=== PATIENT | female | born 1970 | race Caucasian/White ===

== ENCOUNTER 2016-11-28 09:19 | Emergency (ER) | payer BC ==
[2016-11-28 09:30] VITALS: BP 160/94
[2016-11-28] MEDS ORDERED: Acetaminophen TAB* 325 MG PO ONE (09:33)
--- NOTE | 2016-11-28 09:33 | UC ---
Lower Extremity/Ankle HPI - HPI Summary HPI Summary: pain in right heel began after a 3 mile hike yesterday----simial in the past worse first think in the morning and after holding foot still. has not has any treatment in the past ---except rest and ice - History of Current Complaint Chief Complaint: UCLowerExtremity Stated Complaint: HEEL PAIN Time Seen by Provider: 11/28/16 09:24 Hx Obtained From: Patient Hx Last Menstrual Period: 3 wks ago ?: No Onset/Duration: Gradual Onset, Lasting Weeks, Worse Since - yesterday Severity Initially: Moderate Severity Currently: Moderate Pain Intensity: 5 Pain Scale Used: 0-10 Numeric Aggravating Factor(s): Standing, Ambulation Alleviating Factor(s): Nothing Able to Bear Weight: Yes - Allergies/Home Medications Allergies/Adverse Reactions: Allergies Allergy/AdvReac Type Severity Reaction Status Date / Time No Known Allergies Allergy Verified 11/28/16 09:33 Home Medications: Home Medications Famotidine TAB* [Pepcid 20 MG TAB*] 1 tab PO DAILY 11/28/16 [History Confirmed 11/28/16] PMH/Surg Hx/FS Hx/Imm Hx Previously Healthy: No Endocrine History Of: Reports: Diabetes - "insulin resistance" "metabolic syndrome" Denies: Thyroid Disease Cardiovascular History Of: Reports: Hypertension - TREATED WITH MEDICATION Denies: Cardiac Disorders, Pacemaker/ICD Respiratory History Of: Reports: Asthma, Bronchitis, Pneumonia Denies: COPD GI/ History Of: Denies: Ulcer Psychological History Of: Reports: Anxiety, Depression - Surgical History Surgical History: Yes Surgery Procedure, Year, and Place: Sinus Surgery 15 years ago; Lump Removed from Back - Family History Known Family History: Positive: None Family History: no reported cardio vascular issues in family lineage - Social History Occupation: Employed Full-time Lives: With Family Alcohol Use: Occasionally Substance Use Type: Marijuana Smoking Status (MU): Former Smoker Type: Cigarettes Have You Smoked in the Last Year: Yes When Did the Patient Quit Smoking/Using Tobacco: 2 months ago (10/02) Review of Systems Constitutional: Negative Skin: Negative Eyes: Negative ENT: Negative Respiratory: Negative Cardiovascular: Negative Gastrointestinal: Negative Genitourinary: Negative Motor: Negative Neurovascular: Negative Musculoskeletal: Arthralgia - right heel Neurological: Negative Psychological: Negative All Other Systems Reviewed And Are Negative: Yes Physical Exam Triage Information Reviewed: Yes Appearance: Well-Appearing, No Pain Distress, Obese Vital Signs Reviewed: Yes Eye Exam: Normal Eyes: Positive: Conjunctiva Clear ENT Exam: Normal ENT: Positive: Normal ENT inspection, Hearing grossly normal. Negative: Nasal congestion, Nasal drainage, Trismus, Muffled/hoarse voice Dental Exam: Normal Neck exam: Normal Neck: Positive: Supple, Nontender Respiratory Exam: Normal Respiratory: Positive: Chest non-tender, No respiratory distress, No accessory muscle use Cardiovascular Exam: Normal Cardiovascular: Positive: RRR, Pulses Normal, Brisk Capillary Refill Musculoskeletal Exam: Normal Musculoskeletal: Positive: Strength Intact, ROM Intact, No Edema Neurological Exam: Normal Neurological: Positive: Alert, Muscle Tone Normal Psychological Exam: Normal Skin Exam: Normal Diagnostics - Radiology No standard instances Xray Interpretation: Positive (See Comments) - heel spur Radiology Interpretation Completed By: Radiologist Lower Extremity Course/Dx - Course Course Of Treatment: plantar fac. exercises, hypertension information follow with pcp and podiatry - Differential Dx/Diagnosis Differential Diagnosis/HQI/PQRI: Contusion, Fracture (Closed), Gout, Sprain, Strain, Tendonitis Provider Diagnoses: Hypertension, plantar tendonitis (R) Discharge - Discharge Plan Condition: Stable Disposition: HOME Patient Education Materials: Acetaminophen (By mouth), Plantar Fasciitis Exercises (GEN), Plantar Fasciitis (ED), Hypertension (ED) Referrals: Randall Laboy DPM [Doctor of Podiatric Medicine] - 3 Days Stephon Crawley DO [Primary Care Provider] - 1 Week Kael Santiago DPM [Doctor of Podiatric Medicine] - 3 Days
--- NOTE | 2016-11-28 10:12 | RAD ---
INDICATION: Right heel pain after hiking. TECHNIQUE: 3 views of the right foot were obtained. FINDINGS: The bones are in normal alignment. No fracture is seen. There are moderate-sized spurs arising from the posterior and inferior aspect of the calcaneus. IMPRESSION: CALCANEAL SPURS.
== END 2016-11-28 10:40 | disposition home or self-care (01) ==
LOC: UCEAST 09:19
DX: M72.2 Plantar fascial fibromatosis (principal); E11.9 Type 2 diabetes mellitus without complications; I10 Essential (primary) hypertension; J45.909 Unspecified asthma, uncomplicated; F41.9 Anxiety disorder, unspecified; F32.9 Major depressive disorder, single episode, unspecified; F12.90 Cannabis use, unspecified, uncomplicated; F17.210 Nicotine dependence, cigarettes, uncomplicated; Z87.01 Personal history of pneumonia (recurrent)
CPT/HCPCS: 99212; A9270-GY; G0463

== ENCOUNTER 2017-05-09 17:08 | Emergency (ER) | payer BC ==
--- NOTE | 2017-05-09 18:21 | UC ---
Respiratory Complaint HPI - HPI Summary HPI Summary: 46 y/o female PMHX PCOS, HTN, Asthma presents to the urgent care c/o persistent cough since the end of 02/2017. Pt reports , symptoms started with bronchitis and then pneumonia. she has been Tx by her PCP with 1 round of Z-luis manuel, and 2 rounds of Doxycycline PO and Prednisone PO which she finished 4 days ago. However her coughing continues to be persistent, producing a yellowish phlegm. Symptoms are not resolving and now she has RT side mid back pain around ribs, just around the ribs, SOB at home. She has been doing the nebulizer Tx and taking Tessalon PO and Robitussin AC to alleviate cough.Pt is tired of being sick and she is thinking in changing her PCP. She also states urinary frequency and pressure for the past 3 days. Pt denies fever, chest pain lower back pain, and vaginal discharge. LMP: in 03/2016, she declines test since she is not sexually active. - History of Current Complaint Chief Complaint: UCBackPain Stated Complaint: BACK PAIN Time Seen by Provider: 05/09/17 17:59 Hx Obtained From: Patient Hx Last Menstrual Period: poly cystic ovary ?: No Onset/Duration: Gradual Onset, Lasting Weeks - 6-7 weeks, Still Present Timing: Constant Severity Initially: Mild Severity Currently: Severe Pain Intensity: 0 Pain Scale Used: 0-10 Numeric Character: Cough: Productive, Sputum Description: - yellowish Aggravating Factors: Deep Breaths Alleviating Factors: Bronchodilator, OTC Meds Associated Signs And Symptoms: Positive: Dyspnea, Fever - subjective at home, Wheezing Related History: Similar Episode/Dx as: - bronchitis and pneumonia - Risk Factors Pulmonary Embolism Risk Factors: Negative Cardiac Risk Factors: Negative Pseudomonas Risk Factors: Negative Tuberculosis Risk Factors: Negative - Allergies/Home Medications Allergies/Adverse Reactions: Allergies Allergy/AdvReac Type Severity Reaction Status Date / Time No Known Allergies Allergy Verified 11/28/16 09:33 Home Medications: Home Medications Albuterol HFA INHALER* [Ventolin HFA Inhaler*] 1 puff INH Q4H PRN 05/09/17 [ History Confirmed 05/09/17] Albuterol HFA INHALER* [Ventolin HFA Inhaler*] 1 puff INH Q4H PRN 05/09/17 [ History Confirmed 05/09/17] Albuterol/Ipratropium NEB.DRAGAN* [Duoneb (Albuterol 2.5 MG/Ipratropium 0.5 MG)] 1 neb INH Q4H 05/09/17 [History Confirmed 05/09/17] Benzonatate CAP* [Tessalon 100 MG CAP*] 100 mg PO TID 05/09/17 [History Confirmed 05/09/17] Lisinopril [Prinivil TAB 20 mg] 20 mg PO DAILY 05/09/17 [History Confirmed 05/09] Montelukast Sodium TAB* [Singulair 10 MG TAB*] 10 mg PO DAILY 05/09/17 [History Confirmed 05/09/17] PMH/Surg Hx/FS Hx/Imm Hx Previously Healthy: No - With pneumonia and bronchits for the past 6 weeks Other Endocrine History: PCOS Cardiovascular History: Hypertension Respiratory History: Asthma - Surgical History Surgical History: Yes Surgery Procedure, Year, and Place: Sinus Surgery 15 years ago; Lump Removed from Back - Family History Known Family History: Positive: Hypertension Family History: Renal cell carcinoma - Social History Occupation: Employed Full-time Lives: With Family Alcohol Use: Occasionally Substance Use Type: Marijuana Substance Use Comment - Amount & Last Used: few times a week Smoking Status (MU): Former Smoker Type: Cigarettes Length of Time of Smoking/Using Tobacco: 09/2016 Have You Smoked in the Last Year: Yes When Did the Patient Quit Smoking/Using Tobacco: 2 months ago (10/02) Review of Systems Constitutional: Fever - subjective at home Skin: Negative Eyes: Negative ENT: Negative Respiratory: Shortness Of Breath, Cough - productive with yellowish sputum Cardiovascular: Negative Gastrointestinal: Negative Genitourinary: Frequency, Urgency Motor: Negative Neurovascular: Negative Musculoskeletal: Negative Neurological: Negative Psychological: Negative Is Patient Immunocompromised?: No All Other Systems Reviewed And Are Negative: Yes Physical Exam Triage Information Reviewed: Yes Vital Signs: Initial Vital Signs Temp 98.4 F 05/09/17 17:21 Pulse 104 05/09/17 17:21 Resp 18 05/09/17 17:21 BP 131/76 05/09/17 17:21 Pulse Ox 98 05/09/17 17:21 - Additional Comments Vital Signs Reviewed: Yes General: well nourished, well developed obese female, sitting comfortably on the examining table Eyes: Positive: Conjunctiva Clear - PERRLA, EOMI, fundi grossly normal ENT: Positive: Normal ENT inspection, Hearing grossly normal, Pharynx normal, Nasal congestion - edematous and erythematous nasal mucosa, Nasal drainage - yellowish drainage, TMs normal. Negative: Tonsillar swelling, Tonsillar exudate Neck: Positive: Supple, Nontender, No Lymphadenopathy Respiratory: no orthopnea or dyspnea. Able to speak in full sentences, no retractions or accessory muscle use, stridor, or head bobbing. mild decrease breath soun on the RT lowerposterior lung, with sccattered rhonchi in both lungs. Cardiovascular: Positive: RRR, No Murmur, Pulses Normal, Brisk Capillary Refill Abdomen Description: Positive: Nontender, No Organomegaly, Soft. Negative: CVA Tenderness (R), CVA Tenderness (L) Bowel Sounds: Positive: Present Musculoskeletal Exam: Normal Musculoskeletal: Positive: Strength Intact, ROM Intact, No Edema Neurological Exam: Normal Psychological Exam: Normal Skin Exam: Normal UC Diagnostic Evaluation - Laboratory O2 Sat by Pulse Oximetry: 98 Respiratory Course/Dx - Course Course Of Treatment: 46 y/o female PMHX PCOS, HTN, Asthma presents to the urgent care c/o persistent cough since the end of 02/2017. Pt reports , symptoms started with bronchitis and then pneumonia. she has been Tx by her PCP with 1 round of Z-luis manuel, and 2 rounds of Doxycycline PO and Prednisone PO which she finished 4 days ago. However her coughing continues to be persistent, producing a yellowish phlegm. Symptoms are not resolving and now she has RT side mid back pain around ribs, just around the ribs, SOB at home. She has been doing the nebulizer Tx and taking Tessalon PO and Robitussin AC to alleviate cough.Pt is tire of being sick and she is thinking in changing her PCP. She also states urinary frequency and pressure for the past 3 days. Pt denies fever, chest pain lower back pain, and vaginal discharge. LMP: in 03/2016 , she declines test since she is not sexually active. HX obtained. Pt with decrease breath sound on the RT posterior lower lung on examination. UA ordered, result: trace blood. Chest X-ray ordered, Impression: Suggestion of patchy alveolar infiltrates in RT lung > LF lung, mild bronchopneumonia. Pt has been already on Z-luis manuel and doxycycline PO. Dr Dsouza consulted on Pt 's symptoms. She suggested to Rx Bioxen PO. Pharmacy close at this moment. Pt given 1 dose of azitromycin tonight and then advised her to continue with Bioxen tomorrow. also advised to continue doing the nebulazer treatments and continue with the Robitussin to alleviate cough, Increase fluid intake, rest and eat well. Pt strogly advised to F/u with a PCP in 2-3 days for further management. I discussed all the findings and test results with the patient. Patient was instructed to return to the urgent care immediately if any of the symptoms return or worsens. Plan of care was discussed with the patient and understands and agrees. All questions were answered at patient satisfaction. There were no further complaints or concerns. - Differential Dx/Diagnosis Differential Diagnosis/HQI/PQRI: Asthma, Bronchitis, Sinusitis, Other - pneumonia, UTI, Provider Diagnoses: 1- Brochopneumonia - Physician Notification/Consults Discussed Patient Care With: Fabiola Dsouza - DR paulson agreed w/ plan of care Discharge - Discharge Plan Condition: Stable Disposition: HOME Prescriptions: Clarithromycin TAB* [Biaxin 500 MG TAB*] 500 mg PO BID #13 tab guaiFENesin/CODIEN 100MG-10MG* [Robitussin AC 100Mg-10Mg*] 5 ml PO Q4H PRN #120 ml MDD 60ml PRN Reason: Cough Patient Education Materials: Community Acquired Pneumonia (ED) Forms: *Work Release Referrals: [facility] [place] [facility]IAN REFERRAL [Outside] - 3 Days Dangelo Lawler MD [Primary Care Provider] - Additional Instructions: 1-Please take full course of antibiotic to avoid resistance. 2-Continue taking the tessalon PO tabs and the Robitussin AC w/ codeine as directed , use the albuterol inhaler to alleviate cough. Increase fluid intake , rest and eat well. 3- If symptoms do not improve or worsen or your develop SOB with fever and severe cough please go immediately to the ER further evaluation and treatment. 4-See your PCP in 2-3 days to check your symptoms are improving
--- NOTE | 2017-05-09 18:38 | RAD ---
INDICATION: Persistent cough for one month. Shortness of breath. COMPARISON: March 17, 2017 TECHNIQUE: Dual energy PA and routine lateral views of the chest were obtained. REPORT: Large body habitus limits image quality. Suggestion of subtle patchy alveolar infiltrates greater on the RIGHT than the LEFT. Negative for pleural effusion or pneumothorax. The heart, pulmonary vasculature, and mediastinal contours are unremarkable. Mild thoracic degenerative spondylosis. IMPRESSION: Suggestion of mild bronchopneumonia.
[2017-05-09] MEDS ORDERED: Clarithromycin TAB* 500 MG PO ONE (18:57)
[2017-05-09] MEDS ORDERED: Azithromycin TAB* 250 MG PO ONE (19:06)
[2017-05-09 19:20] VITALS: BP 124/80
== END 2017-05-09 19:21 | disposition home or self-care (01) ==
LOC: UCEAST 17:08
DX: J18.0 Bronchopneumonia, unspecified organism (principal); E28.2 Polycystic ovarian syndrome; I10 Essential (primary) hypertension; J45.909 Unspecified asthma, uncomplicated
CPT/HCPCS: 71020; 81003; 99212; A9270-GY; G0463

== ENCOUNTER 2018-01-09 17:02 | Emergency (ER) | payer BC ==
[2018-01-09 17:16] VITALS: BP 142/95
--- NOTE | 2018-01-09 17:23 | UC ---
Respiratory Complaint HPI - HPI Summary HPI Summary: 47 yo female presents with dry cough and chest congestion for the past 2 weeks. She tells me that she has had pneumonia multiple times in the past and this feels the same. She has a history of asthma and has a nebulizer at home and has been using this with her albuterol solution more frequently lately. Does feel SOB at times especially with walking. Denies fever, chills, chest pain, abdominal pain, n/v. - History of Current Complaint Chief Complaint: UCRespiratory Stated Complaint: CHEST CONGESTION, BACK PAIN Time Seen by Provider: 01/09/18 17:23 Hx Obtained From: Patient Hx Last Menstrual Period: poly cystic ovary Severity Currently: None Pain Intensity: 0 Character: Cough: Nonproductive - Allergies/Home Medications Allergies/Adverse Reactions: Allergies Allergy/AdvReac Type Severity Reaction Status Date / Time No Known Allergies Allergy Verified 01/09/18 17:17 Home Medications: Home Medications Cholecalciferol (Vitamin D3) [Vitamin D3] 10,000 unit PO BEDTIME 01/09/18 [ History Confirmed 01/09/18] PMH/Surg Hx/FS Hx/Imm Hx Cardiovascular History: Hypertension Respiratory History: Asthma GI/ History: Gastroesophageal Reflux - Surgical History Surgical History: Yes Surgery Procedure, Year, and Place: Sinus Surgery 15 years ago; Lump Removed from Back - Family History Known Family History: Positive: None, Hypertension Family History: Renal cell carcinoma - Social History Occupation: Employed Full-time Lives: With Family Alcohol Use: Rare Substance Use Type: Marijuana Substance Use Comment - Amount & Last Used: few times a month Smoking Status (MU): Former Smoker Type: Cigarettes Length of Time of Smoking/Using Tobacco: 09/2016 Have You Smoked in the Last Year: Yes When Did the Patient Quit Smoking/Using Tobacco: 2 months ago (10/02) Review of Systems Constitutional: Negative Skin: Negative Eyes: Negative ENT: Negative Respiratory: Shortness Of Breath, Cough Cardiovascular: Negative Gastrointestinal: Negative Neurovascular: Negative Neurological: Negative Psychological: Negative All Other Systems Reviewed And Are Negative: Yes Physical Exam - Summary Physical Exam Summary: GENERAL: NAD. WDWN. No pain distress. SKIN: No rashes, sores, lesions, or open wounds. HEENT: Head: AT/NC Eyes: Conjunctiva clear without inflammation or discharge. Ears: Hearing grossly normal. TMs intact, no bulging, erythema, or edema. Nose: Nasal mucosa pink and moist. NTTP maxillary and frontal sinus. Throat: Posterior oropharynx without exudates, erythema, or tonsillar enlargement. Uvula midline. NECK: Supple. Nontender. No lymphadenopathy. CHEST: Mild wheezing throughout. No r/r. No accessory muscle use. Breathing comfortably and in no distress. CV: RRR. Without m/r/g. Pulses intact. Brisk cap refill. NEURO: Alert. CN II-XII grossly intact. PSYCH: Age appropriate behavior. Triage Information Reviewed: Yes Vital Signs: Initial Vital Signs Temp 98.8 F 01/09/18 17:09 Pulse 96 01/09/18 17:09 Resp 16 01/09/18 17:09 BP 142/95 01/09/18 17:09 Pulse Ox 99 01/09/18 17:09 Diagnostic Evaluation - Laboratory O2 Sat by Pulse Oximetry: 99 Respiratory Course/Dx - Course Course Of Treatment: CXR: IMPRESSION: NO ACTIVE DISEASE OR INTERVAL CHANGE. Suspect asthma exacerbation - rx for zpak and prednisone. Refill of albuterol neb solution. - Differential Dx/Diagnosis Provider Diagnoses: Asthma exacerbation Discharge - Sign-Out/Discharge Documenting (check all that apply): Discharge/Admit/Transfer - Discharge Plan Condition: Stable Disposition: HOME Prescriptions: Albuterol 2.5MG/3ML (0.083%)* [Ventolin 2.5 MG/3 ML NEB.DRAGAN*] 2.5 mg INH Q6H PRN #30 [email or web address] PRN Reason: Wheezing Azithromycin TAB* [Zithromax TAB (Z-KAROLINE) 250 mg #6 tabs] 2 tab PO .TODAY, THEN 1 DAILY #1 karoline predniSONE TAB* [Deltasone TAB*] 50 mg PO DAILY #5 tab Patient Education Materials: Acute Bronchitis (ED) Referrals: Mavis Smallwood MD [Primary Care Provider] - Additional Instructions: If you develop a fever, shortness of breath, chest pain, new or worsening symptoms - please call your PCP or go to the ED. Your blood pressure was high at todays visit. Please see your primary provider within 4 weeks for recheck and re-evaluation. - Billing Disposition and Condition Condition: STABLE Disposition: Home
--- NOTE | 2018-01-09 17:47 | RAD ---
INDICATION: Cough COMPARISON: Chest x-ray May 09, 2017; chest x-ray May 22, 2012; chest x-ray April 05, 2009 TECHNIQUE: PA and lateral dual-energy views were obtained. FINDINGS: Bones/Soft Tissues: There are no acute bony findings. Cardiomediastinal: The cardiomediastinal silhouette is unchanged on all prior studies. The right hilum is prominent which is likely related to vascular confluence given the long-term stability. Lungs: There are no infiltrates. Pleura: There are no pleural effusions. Other: None IMPRESSION: NO ACTIVE DISEASE OR INTERVAL CHANGE
[2018-01-09] MEDS ORDERED: Azithromycin TAB* 250 MG PO ONE (17:50)
== END 2018-01-09 18:07 | disposition home or self-care (01) ==
LOC: UCEAST 17:02
DX: J45.901 Unspecified asthma with (acute) exacerbation (principal); I10 Essential (primary) hypertension; M54.9 Dorsalgia, unspecified; Z87.891 Personal history of nicotine dependence
CPT/HCPCS: 71046; 99212; A9270-GY; G0463

== ENCOUNTER 2018-06-04 16:01 | Emergency (ER) | payer BC ==
[2018-06-04 16:29] VITALS: BP 142/87
--- NOTE | 2018-06-04 16:44 | UC ---
UC General HPI - HPI Summary HPI Summary: PT C/O 2 DAY HX BURNING, ITCHING AND SORENESS TO BOTH EYES. EYES ARE RED R>L. NO CONTACT USE, DRAINAGE OR MATTING. NO VISUAL CHANGE. CHRONIC NASAL CONGESTION. NO FEVER. LESS RED AFTER WARM COMPRESS/SHOWER. - History of Current Complaint Chief Complaint: UCEye Stated Complaint: BILATERAL EYE CONCERN Time Seen by Provider: 06/04/18 16:35 Hx Obtained From: Patient Hx Last Menstrual Period: PCOS - irregular Onset/Duration: Gradual Onset Timing: Constant Pain Intensity: 0 Associated Signs & Symptoms: Negative: Fever, Headache - Allergy/Home Medications Allergies/Adverse Reactions: Allergies Allergy/AdvReac Type Severity Reaction Status Date / Time No Known Allergies Allergy Verified 06/04/18 16:30 Home Medications: Home Medications Albuterol HFA INHALER* [Ventolin HFA Inhaler*] 1 - 2 puff INH Q6H PRN 06/04/18 [ History Confirmed 06/04/18] Apixaban* [Eliquis*] 2.5 mg PO BID 06/04/18 [History Confirmed 06/04/18] Budesonide/Formote 160/4.5(NF) [Symbicort 160/4.5 (NF)] 2 puff INH BID 06/04/18 [History Confirmed 06/04/18] Loratadine [Claritin 10 MG CAP] 10 mg PO DAILY 06/04/18 [History Confirmed 06/04] Torsemide TAB* [Demadex*] 20 mg PO DAILY 06/04/18 [History Confirmed 06/04/18] PMH/Surg Hx/FS Hx/Imm Hx - Additional Past Medical History Additional PMH: ALLERGIES, PE Cardiovascular History: Hypertension Respiratory History: Asthma GI/ History: Gastroesophageal Reflux - Surgical History Surgical History: Yes Surgery Procedure, Year, and Place: Sinus Surgery 15 years ago; Lump Removed from Back - Family History Known Family History: Positive: None, Hypertension Family History: Renal cell carcinoma - Social History 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 Negative: Blurred Vision, Diplopia, Drainage, Photophobia ENT: Positive: Negative Respiratory: Positive: Negative Cardiovascular: Positive: Negative Gastrointestinal: Positive: Negative Genitourinary: Positive: Negative Motor: Positive: Negative Neurovascular: Positive: Negative Musculoskeletal: Positive: Edema - BLE'S-CHRONIC Neurological: Positive: Negative Psychological: Positive: Negative Is Patient Immunocompromised?: No Physical Exam Triage Information Reviewed: Yes Appearance: Well-Appearing Vital Signs: Initial Vital Signs Temp 98.3 F 06/04/18 16:26 Pulse 93 06/04/18 16:26 Resp 20 06/04/18 16:26 BP 142/87 06/04/18 16:26 Pulse Ox 98 06/04/18 16:26 Vital Signs Reviewed: Yes Eyes: Positive: Conjunctiva Inflamed - R>L, Other: - PERRL, EOMI. NO PERIORBITAL EDEMA OR ERYTHEMA. LIDS EVERTED AND NO FB'S. A/C'S CLEAR. NO AURICULAR ADENOPATHY. ENT: Positive: Pharynx normal, TMs normal. Negative: Nasal congestion, Nasal drainage Neck: Positive: Supple, Nontender, No Lymphadenopathy Respiratory: Positive: Lungs clear, Normal breath sounds Cardiovascular: Positive: RRR, No Murmur Abdomen Description: Positive: Nontender, No Organomegaly, Soft Bowel Sounds: Positive: Present Musculoskeletal: Positive: ROM Intact Neurological: Positive: Alert Psychological: Positive: Age Appropriate Behavior Skin Exam: Normal Skin: Negative: Rashes Course/Dx - Course Course Of Treatment: NO CONCERN FOR CORNEAL ULCER OR HERPES KERATITIS. POSSIBLE DRY EYE VS VIRAL CONJUNCTIVITIS. DOUBT EPISCLERITIS. PT NOT ABLE TO TAKE NSIADS. WILL TX DRY EYE DROPS AND OPTHAMOLOGY F/U IN2 DAYS. PT WILL GO TO ER FOR ANY WORSENING. - Differential Dx - Multi-Symptom Provider Diagnoses: NON SPECIFIC CONJUNCTIVITIS Discharge - Sign-Out/Discharge Documenting (check all that apply): Patient Departure All imaging exams completed and their final reports reviewed: No Studies - Discharge Plan Condition: Stable Disposition: HOME Patient Education Materials: Conjunctivitis (ED) Referrals: Leigh Mendoza MD [Medical Doctor] - 2 Days Additional Instructions: DIAGNOSIS: NON SPECIFIC CONJUNCTIVITIS. CONSIDER AN OVER THE COUNTER DRY EYE DROP DAILY. GO TO ER FOR ANY WORSENING. - Billing Disposition and Condition Condition: STABLE Disposition: Home
== END 2018-06-04 17:00 | disposition home or self-care (01) ==
LOC: UCCORT 16:01
DX: H10.9 Unspecified conjunctivitis (principal); I10 Essential (primary) hypertension; Z87.891 Personal history of nicotine dependence
CPT/HCPCS: 99211; G0463

== ENCOUNTER 2019-04-08 15:50 | Emergency (ER) | payer BC ==
[2019-04-08 16:08] VITALS: BP 128/77
--- NOTE | 2019-04-08 17:31 | UC ---
Respiratory Complaint HPI - HPI Summary HPI Summary: worsening cough and chest discomfort---patient feels this is sinus related---- however she does vape nightly and has a history of saddle emboli---she presents tachycardia and sats slightly lower than baseline in the past year-- - History of Current Complaint Chief Complaint: UCRespiratory Stated Complaint: URI Time Seen by Provider: 04/08/19 16:16 Hx Obtained From: Patient Hx Last Menstrual Period: irregulr ?: No Onset/Duration: Gradual Onset, Lasting Days, Still Present, Worse Since - past 24 hours Pain Intensity: 6 Pain Scale Used: 0-10 Numeric Character: Cough: Nonproductive Aggravating Factors: Nothing Alleviating Factors: Nothing Associated Signs And Symptoms: Positive: Pleuritic Chest Pain - Allergies/Home Medications Allergies/Adverse Reactions: Allergies Allergy/AdvReac Type Severity Reaction Status Date / Time No Known Allergies Allergy Verified 04/08/19 16:11 Home Medications: Home Medications Bifidobacterium Infantis [Align] 4 mg PO DAILY WITH MEAL 04/08/19 [History Confirmed 04/08/19] Budesonide NASAL (NF) [Rhinocort Aqua (NF)] 32 mcg NA DAILY WITH MEAL 04/08/19 [ History Confirmed 04/08/19] Cyclobenzaprine TAB* [Flexeril 10 MG TAB*] 5 mg PO BEDTIME 04/08/19 [History Confirmed 04/08/19] Enoxaparin Sodium [Lovenox] 100 mg SC BID 04/08/19 [History Confirmed 04/08/19] Gabapentin [Neurontin] 100 mg PO SEE INSTRUCTIONS 04/08/19 [History Confirmed ] Metformin HCl 3,000 mg PO DAILY WITH MEAL 04/08/19 [History Confirmed 04/08/19] [place]-3 Acid Ethyl Esters [Lovaza 1 gm] 1 cap PO DAILY WITH MEAL 04/08/19 [ History Confirmed 04/08/19] [place]-3 Acid Ethyl Esters [Lovaza] 1 gm PO DAILY WITH MEAL 04/08/19 [History Confirmed 04/08/19] PMH/Surg Hx/FS Hx/Imm Hx Previously Healthy: No Endocrine History: Dyslipidemia Cardiovascular History: Cardiac Disease, Hypertension, Other Other Cardiovascular History: pumlonary emboli GI/ History: Gastroesophageal Reflux Psychological History: Anxiety - Surgical History Surgical History: Yes Surgery Procedure, Year, and Place: Sinus Surgery 15 years ago;. Lump Removed from Back; - Family History Known Family History: Positive: None, Hypertension Family History: Renal cell carcinoma - Social History Occupation: Employed Full-time Lives: With Family Alcohol Use: Rare Substance Use Type: Marijuana Substance Use Comment - Amount & Last Used: nightly e ci Smoking Status (MU): Light Every Day Tobacco Smoker Type: Cigarettes Length of Time of Smoking/Using Tobacco: 09/2016 Have You Smoked in the Last Year: Yes When Did the Patient Quit Smoking/Using Tobacco: tobacco/ 2018- still e smoke TLM Com Household Exposure Type: Cigarettes Review of Systems All Other Systems Reviewed And Are Negative: Yes Constitutional: Positive: Negative Skin: Positive: Negative Eyes: Positive: Negative ENT: Positive: Sinus Congestion Respiratory: Positive: Shortness Of Breath, Cough Cardiovascular: Positive: Chest Pain Gastrointestinal: Positive: Negative Genitourinary: Positive: Negative Motor: Positive: Negative Neurovascular: Positive: Negative Musculoskeletal: Positive: Negative Neurological: Positive: Negative Psychological: Positive: Negative Is Patient Immunocompromised?: No Physical Exam Triage Information Reviewed: Yes Appearance: No Pain Distress, Ill-Appearing, Obese Vital Signs: Initial Vital Signs Temp 97.3 F 04/08/19 16:00 Pulse 109 04/08/19 16:00 Resp 20 04/08/19 16:00 BP 128/77 04/08/19 16:00 Pulse Ox 97 04/08/19 16:00 Vital Signs Reviewed: Yes Eye Exam: Normal Eyes: Positive: Conjunctiva Clear ENT Exam: Normal ENT: Positive: Normal ENT inspection, Hearing grossly normal, Pharynx normal, Uvula midline. Negative: Trismus, Muffled voice, Hoarse voice Dental Exam: Normal Neck exam: Normal Neck: Positive: Supple, Nontender, No Lymphadenopathy Respiratory Exam: Normal Respiratory: Positive: Decreased breath sounds. Negative: Chest non-tender, No respiratory distress, No accessory muscle use Cardiovascular: Positive: Pulses Normal, Brisk Capillary Refill, Tachycardia Musculoskeletal Exam: Normal Musculoskeletal: Positive: Strength Intact, ROM Intact, No Edema Neurological Exam: Normal Neurological: Positive: Alert, Muscle Tone Normal Psychological Exam: Normal Skin Exam: Normal Respiratory Course/Dx - Course Course Of Treatment: information regarding MTHFR shared with patient--patient to go to [facility] ed for further evaluation due to tachycardia and PMH - Differential Dx/Diagnosis Provider Diagnosis: Tachycardia, Cough in adult Discharge ED - Sign-Out/Discharge Documenting (check all that apply): Patient Departure All imaging exams completed and their final reports reviewed: No Studies - Discharge Plan Condition: Stable Disposition: HOME-RECOMMEND TO ED Patient Education Materials: Acute Cough (ED), Tachycardia (ED) Referrals: Janel Jasso NP [Nurse Practitioner] - Yvrose Smith PA [Physician Police Specialist] - Additional Instructions: [address], [address] [place], [place] [address] - Billing Disposition and Condition Condition: STABLE Disposition: Home-Recommend to ED
== END 2019-04-08 17:27 | disposition home health service (06) ==
LOC: UCEAST 15:50
DX: R05 Cough (principal); R00.0 Tachycardia, unspecified; E78.5 Hyperlipidemia, unspecified; I10 Essential (primary) hypertension; F41.9 Anxiety disorder, unspecified; K21.9 Gastro-esophageal reflux disease without esophagitis; F17.210 Nicotine dependence, cigarettes, uncomplicated; Z86.711 Personal history of pulmonary embolism
CPT/HCPCS: 99212; G0463

== ENCOUNTER 2019-04-08 17:48 | Emergency (ER) | payer BC ==
[2019-04-08 20:23] LABS: ABS Basophils 0.1 10^3/ul (0-0.2); ABS Eosinophils 0.4 10^3/ul (0-0.6); ABS Monocytes 0.6 10^3/ul (0-0.8); ABS Neutrophils 6.8 10^3/ul (1.5-7.7); Eosinophil % 3.3 %; Hematocrit 37 % (35-47); Hemoglobin 12.6 g/dL (12.0-16.0); Lymphocyte % 27.5 %; Mean Corpuscular HGB Conc 34 g/dL (31-36); Mean Corpuscular Hemoglobin 30 pg (27-31); Mean Corpuscular Volume 90 fL (80-97); Mean Platelet Volume 7.4 fL (7.4-10.4); Platelet Count 317 10^3/uL (150-450); Red Blood Count 4.17 10^6 /uL (3.70-4.87); Red Cell Distribution Width 14 % (10-15); White Blood Count 10.9 10^3/uL (3.5-10.8)
[2019-04-08 20:45] LABS: Albumin 4.6 g/dL (3.2-5.2); Albumin/Globulin Ratio 1.9 (1-3); BUN/Creatinine Ratio 23.4 (8-20); C Reactive Protein 12.07 mg/L (<8.01); Calcium 9.4 mg/dL (8.6-10.3); EGFR African American 96.8 (>60); Globulin 2.4 g/dL (2-4); Total Bilirubin 0.5 mg/dL (0.2-1.0)
[2019-04-08] MEDS ORDERED: Amoxicillin/Clavulanate TAB* 875 MG PO ONE (20:53)
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
[2019-04-08 21:22] VITALS: BP 112/79
== END 2019-04-08 21:24 | disposition home or self-care (01) ==
LOC: ED 17:48
DX: J32.9 Chronic sinusitis, unspecified (principal); E11.9 Type 2 diabetes mellitus without complications; I10 Essential (primary) hypertension; K21.9 Gastro-esophageal reflux disease without esophagitis; F41.9 Anxiety disorder, unspecified; F32.9 Major depressive disorder, single episode, unspecified; Z87.891 Personal history of nicotine dependence; Z79.84 Long term (current) use of oral hypoglycemic drugs; Z79.899 Other long term (current) drug therapy
CPT/HCPCS: 36415; 71046; 80053; 83605; 83880; 84484; 85025; 85379; 86140; 87040; 93005; 99283; A9270-GY

== ENCOUNTER → 2019-05-19 05:43 | Day surgery (SDC) | payer BC ==
[~2019-05-19 05:43] MED LIST: Buffered Lidocaine 1% SYRIN* 1 ML/SYRINGE INTRADERM ONE; Lactated Ringers 1000 ML Bag* 1,000 ML IV SCH; Midazolam* 1 MG/ML 5 ML VIAL (5 MG) ONE; fentaNYL* 50 MCG/ML 2 ML VIAL (100 MCG VIAL) ONE
[2019-05-19 10:07] VITALS: BP 100/60
== END | disposition home or self-care (01) ==
LOC: OR 05:43
PROVIDERS: ATTEND Family Medicine Sports Medicine
DX: M54.2 Cervicalgia (principal); M54.5 Low back pain; M51.34 Other intervertebral disc degeneration, thoracic region; M51.36 Other intervertebral disc degeneration, lumbar region; M47.816 Spondylosis without myelopathy or radiculopathy, lumbar region; M47.812 Spondylosis without myelopathy or radiculopathy, cervical region; M48.02 Spinal stenosis, cervical region; G47.33 Obstructive sleep apnea (adult) (pediatric); J45.909 Unspecified asthma, uncomplicated; Z87.891 Personal history of nicotine dependence; E66.01 Morbid (severe) obesity due to excess calories; R73.03 Prediabetes; Z86.711 Personal history of pulmonary embolism; Z79.01 Long term (current) use of anticoagulants; R60.0 Localized edema
CPT/HCPCS: 72141; 72146; 72148; 81025; J2250; J3010